=== PATIENT | female | born 1970 | race Caucasian/White ===

== ENCOUNTER 2022-04-23 18:04 | Emergency (ER) | payer MEDICAID ==
[~2022-04-23] VITALS: Ht 167.6 cm; Wt 70.0 kg
[2022-04-23 19:00] VITALS: BP 114/65
[2022-04-23 19:58] LABS: BASOPHILS % 0.6 % (0.0-2.0); HEMATOCRIT. 40.1 % (36.0-48.0); HEMOGLOBIN. 13.4 g/dL (12.0-16.0); LYMPHOCYTES % 27.5 % (20.0-50.0); MEAN CORPUSCULAR HEMOGLOBIN 29.7 pg (28.0-32.0); MEAN CORPUSCULAR VOLUME 88.5 fL (81.0-99.0); MEAN PLATELET VOLUME 9.5 fl (7.4-10.4); MONOCYTES % 11.2 % (2.0-8.0); NEUTROPHILS % 58.7 % (40.0-76.0); PLATELET 216 x1000/uL (130-400); RED BLOOD CELL COUNT 4.53 mill/uL (4.2-5.4); RED CELL DISTRIBUTION WIDTH 13.5 % (11.6-14.6)
[2022-04-25 00:23] LABS: CHLORIDE 100 mEq/L (98-107)
[2022-04-25 00:56] LABS: ETHANOL BLOOD < 10 mg/dL
== END 2022-04-23 19:28 | disposition home or self-care (01) ==
LOC: ER 18:04
DX: R55 Syncope and collapse (principal); E11.9 Type 2 diabetes mellitus without complications; Z13.9 Encounter for screening, unspecified; Z86.73 Personal history of transient ischemic attack (TIA), and cerebral infarction without residual deficits
CPT/HCPCS: 36415; 70450; 71045; 80053; 80320; 83880; 84484; 85025; 93005; 99285; Z7610; G0480